=== PATIENT | female | born 1970 | race Two or more races ===

== ENCOUNTER → 2016-12-20 | Outpatient (CLI) | payer OTHER | LOC: BMCIMAGING 14:13 | DX: Z12.31 Encounter for screening mammogram for malignant neoplasm of breast (principal) | CPT/HCPCS: G0202 ==

== ENCOUNTER → 2017-01-01 | Outpatient (CLI) | payer OTHER | LOC: BMCIMAGING 12:26 | PROVIDERS: ATTEND Internal Medicine | DX: R92.8 Other abnormal and inconclusive findings on diagnostic imaging of breast (principal) | CPT/HCPCS: G0206 ==

== ENCOUNTER → 2018-01-13 | Outpatient (CLI) | payer OTHER | LOC: FIMAGING 14:06 | PROVIDERS: ATTEND Internal Medicine | DX: Z12.31 Encounter for screening mammogram for malignant neoplasm of breast (principal) ==

== ENCOUNTER → 2018-03-25 | Outpatient (CLI) | payer OTHER | LOC: BMCIMAGING 14:43 | PROVIDERS: ATTEND Family Medicine | DX: K76.9 Liver disease, unspecified (principal); Z90.49 Acquired absence of other specified parts of digestive tract ==

== ENCOUNTER → 2018-12-11 | Outpatient (CLI) | payer OTHER | LOC: CIMAGING 14:56 | PROVIDERS: ATTEND Physical Medicine & Rehabilitation | DX: M25.521 Pain in right elbow (principal); M85.88 Other specified disorders of bone density and structure, other site | CPT/HCPCS: 73080-PO ==

== ENCOUNTER 2019-02-08 08:19 | Emergency (ER) | payer OTHER ==
[2019-02-08] MEDS ORDERED: LIDOCAINE 2% VISCOUS 15 ML UDCUP PO ONE (08:56)
[2019-02-08] MEDS ORDERED: MAG HYDROX/AL HYDROX/SIMETH 30 ML UDCUP PO ONE (08:56)
[2019-02-08] MEDS ORDERED: HYOSCYAMINE SULFATE 0.125 MG TAB PO ONE (08:56)
[2019-02-08] MEDS ORDERED: NS 1,000 ML IV ONE (08:56)
[2019-02-08] MEDS ORDERED: HYDROmorphONE/DILAUDID 2 MG/ML INJ IVP ONE (08:56)
[2019-02-08] MEDS ORDERED: FAMOTIDINE 20 MG in NS 100 ML IV ONE (08:56)
[2019-02-08] MEDS ORDERED: ONDANSETRON 4 MG/2 ML VIAL IVP ONE (08:56)
--- NOTE | 2019-02-08 10:13 | EDPHY ---
H & P Time Seen by Provider: 02/08/19 08:23 HPI/ROS: CHIEF COMPLAINT: Abdominal pain HISTORY OF PRESENT ILLNESS: Patient states she has "really bad pain" in the epigastric region. She states it is similar to pain she had 10 years ago when she ended up in the hospital with an NG to for "infection". In September of this year she got diagnosed with H pylori infection and was treated. She states she took her entire course of medications to eradicate the H pylori. She has not been recheck for test of cure. She states this pain feels similar to this when she was diagnosed with the H pylori in August. She states she was fine yesterday. This morning however she woke up and felt nauseated, she had 1 episode of vomiting. Pain was diffuse in the epigastrium with radiation bilaterally to the back. She describes the pain at worst as 10/10. Now it is about 6/10. She states she also feels bloated at times. She denies any diarrhea or constipation she denies any urinary symptoms. No fevers or chills. REVIEW OF SYSTEMS: Constitutional: No fever, no chills. Eyes: No discharge. ENT: No sore throat. Cardiovascular: No chest pain, no palpitations. Respiratory: No cough, no shortness of breath. Gastrointestinal: No abdominal pain, no vomiting. Genitourinary: No dysuria. Musculoskeletal: No back pain. Skin: No rashes. Neurological: No headache. General Appearance: Alert, mild distress. Eyes: Pupils equal and round no pallor or injection. ENT, Mouth: Mucous membranes moist. Respiratory: There are no retractions, lungs are clear to auscultation. Cardiovascular: Regular rate and rhythm. Gastrointestinal: Abdomen is soft nondistended, no masses, bowel sounds normal. Tenderness to palpation epigastrium. No CVA tenderness. Neurological: Awake, alert, cranial nerves intact no focal neurologic deficits. Skin: Warm and dry, no rashes. Musculoskeletal: Neck is supple nontender. Extremities are symmetrical, full range of motion, no edema. Psychiatric: Patient is oriented X 3, there is no agitation. Medical/surgical history: Cholecystectomy, hysterectomy, . H pylori infection. Social history: No smoking, EtOH, drugs. Smoking Status: Never smoked Constitutional: Initial Vital Signs Temperature (C) 36.5 C 02/08/19 08:28 Heart Rate 65 05/13/19 08:28 Respiratory Rate 16 02/08/19 08:28 Blood Pressure 142/88 H 02/08/19 08:28 O2 Sat (%) 95 02/08/19 08:28 O2 Delivery Mode Room Air Allergies/Adverse Reactions: No Known Allergies Allergy (Verified 02/08/19 08:27) Home Medications: Medication Instructions Recorded NK [No Known Home Meds] 02/08/19 Medical Decision Making - Diagnostics Imaging Results: Imaging Impressions Abdomen X-Ray 02/08/19 08:57 Impression: Jejunal edema. Query enteritis of undetermined etiology. Abdomen CT 02/08/19 10:11 Impression: 1. Multiple benign hepatic hemangiomata up to 3 x 2.[address] evidence of appendicitis, abscess or bowel obstruction. 3. Prior cholecystectomy without biliary obstruction. 4. Uterine 2.8 x 1.7 cm cystic lesion in the fundus region which may represent abnormal endometrial thickening or necrotic degenerating leiomyoma. Recommend follow-up ultrasound of the pelvis. 5. Sigmoid diverticulosis without diverticulitis. Findings and recommendations discussed with Emergency Department physician, Mercedes Fishman MD, at 1150 hour, 02/08/2019. Final report concurs with initial preliminary interpretation. Imaging: Discussed imaging studies w/ photoradio operator Radiologist ED Course/Re-evaluation: 10:00 a.m. Re-evaluation. Patient was pain free but now states pain is returning. Abdominal exam the same. Laboratory evaluation within normal limits other than mildly elevated glucose. Differential Diagnosis: Differential diagnosis includes but is not limited to pancreatitis, gastritis, small-bowel obstruction, recurrent H pylori infection. After evaluation suspect gastritis, possibly ineffective H pylori treatment. No evidence of bowel obstruction, perforation, GI bleed, other acute intra-abdominal process. Treated with multiple medications, IV fluids, with improvement in the emergency department. Recommended restarting of acid reduction medications and close follow-up with ground hand. Understands follow-up and return precautions. Stable for discharge. - Data Points Laboratory Results: 02/08/19 02/08/19 09:00 08:58 POC Sodium 138 mEq/L mEq/L (135-145) POC Potassium 3.7 mEq/L mEq/L (3.3-5.0) POC Chloride 105.0 mEq/L mEq/L (97-110) POC Total CO2 26 mEq/L mEq/L (22-31) POC BUN 13 mg/dL mg/dL (7-23) POC Creatinine 0.7 mg/dL mg/dL (0.6-1.0) POC Glucose 108 mg/dL H mg/dL (70-100) POC Calcium 8.7 mg/dL mg/dL (8.5-10.4) POC Total Bilirubin 0.9 mg/dL mg/dL (0.1-1.4) POC AST 26 IU/L IU/L (14-46) POC ALT 27 IU/L IU/L (9-52) POC Alk Phosphatase 63 IU/L IU/L (38-126) POC Total Protein 6.8 g/dL g/dL (6.3-8.2) POC Albumin 3.6 g/dL g/dL (3.5-5.0) Lipase 125 IU/L IU/L (23-300) Medications Given: Discontinued Medications Al Hydroxide/Mg Hydroxide (Maalox Susp) 30 ml PO ONCE ONE Stop: 02/08/19 08:57 Last Admin: 02/08/19 10:06 Dose: 30 ml Hydromorphone HCl (Dilaudid) 0.5 mg IVP EDNOW ONE Stop: 02/08/19 08:57 Last Admin: 02/08/19 09:22 Dose: 0.5 mg Hyoscyamine Sulfate (Levsin, Hyomax-Sl) 0.25 mg PO ONCE ONE Stop: 02/08/19 08:57 Last Admin: 02/08/19 10:06 Dose: 0.25 mg Sodium Chloride (Ns) 1,000 mls @ 0 mls/hr IV EDNOW ONE; Wide Open PRN Reason: Protocol Stop: 02/08/19 08:57 Last Admin: 02/08/19 09:20 Dose: 1,000 mls Famotidine 20 mg/ Sodium (Chloride) 102 mls @ 408 mls/hr IV EDNOW ONE Stop: 02/08/19 09:10 Last Admin: 02/08/19 09:26 Dose: 102 mls Lidocaine (Lidocaine 2% Viscous) 15 ml PO ONCE ONE Stop: 02/08/19 08:57 Last Admin: 02/08/19 10:06 Dose: 15 ml Ondansetron HCl (Zofran) 4 mg IVP EDNOW ONE Stop: 02/08/19 08:57 Last Admin: 02/08/19 09:20 Dose: 4 mg Point of Care Test Results: CBC CBC Collection Date 02/08/19 CBC Collection Time 08:40 WBC 8.61 RBC 4.85 HGB 14.9 HCT 43.3 PLT 312 Neut # 5.93 Neut 68.9 LYMPH # 1.62 LYMPH 18.8 MCV 89.3 Chemistry 02/08/19 09:00 POC Sodium 138 mEq/L mEq/L (135-145) POC Potassium 3.7 mEq/L mEq/L (3.3-5.0) POC Chloride 105.0 mEq/L mEq/L (97-110) POC Total CO2 26 mEq/L mEq/L (22-31) POC BUN 13 mg/dL mg/dL (7-23) POC Creatinine 0.7 mg/dL mg/dL (0.6-1.0) POC Glucose 108 mg/dL H mg/dL (70-100) POC Calcium 8.7 mg/dL mg/dL (8.5-10.4) POC Total Bilirubin 0.9 mg/dL mg/dL (0.1-1.4) POC AST 26 IU/L IU/L (14-46) POC ALT 27 IU/L IU/L (9-52) POC Alk Phosphatase 63 IU/L IU/L (38-126) POC Total Protein 6.8 g/dL g/dL (6.3-8.2) POC Albumin 3.6 g/dL g/dL (3.5-5.0) Departure - Departure Disposition: Home, Routine, Self-Care Clinical Impression: Abdominal pain Qualifiers: Abdominal location: epigastric Qualified Code(s): R10.13 - Epigastric pain Condition: Fair Instructions: Gastritis (ED), Helicobacter Pylori (ED) Additional Instructions: Try taking Zantac or Prilosec [id number] as discussed. This needs to be taken every day for symptom control. Maalox may be helpful for immediate pain relief. I recommend you call your ground hand at [facility] this afternoon to make an appointment as soon as they are able to see you. Avoid acidic foods and do not eat prior to going to bed. Return to the emergency department if you develope more severe symptoms, vomiting and can't keep fluids down, or other concerns. Referrals: Marcela Monahan DO [Primary Care Provider] - As per Instructions
[2019-02-08] MEDS ORDERED: IOPAMIDOL (ISOVUE-300) 100 ML BTL ONE (11:10)
[2019-02-08 13:30] VITALS: BP 111/68
== END 2019-02-08 13:28 | disposition home or self-care (01) ==
LOC: CED 08:19
DX: R10.13 Epigastric pain (principal); N85.8 Other specified noninflammatory disorders of uterus; D18.09 Hemangioma of other sites; K57.30 Diverticulosis of large intestine without perforation or abscess without bleeding; Z90.49 Acquired absence of other specified parts of digestive tract
CPT/HCPCS: 74018-PO; 74177-PO; 80053-ER; 85025-QW-ER; 96361-ER; 96374-ER; 96375-ER; 99285-ER; J1170; J2405; Q9967

== ENCOUNTER → 2019-03-15 | Outpatient (CLI) | payer OTHER | LOC: FIMAGING 14:29 ==

== ENCOUNTER → 2019-03-29 | Outpatient (CLI) | payer OTHER | LOC: FIMAGING 14:29 ==